=== PATIENT | female | born 1960 | race Caucasian/White ===

== ENCOUNTER → 2023-05-21 13:31 | Outpatient (REF) | payer OTHER, SELFPAY | LOC: HWWDC 13:31 | PROVIDERS: ATTENDING PHYSICIAN Nurse Practitioner Adult Health; FAMILY PHYSICIAN Internal Medicine | DX: Z12.31 Encounter for screening mammogram for malignant neoplasm of breast (principal) | CPT/HCPCS: 77063; 77067 ==

== ENCOUNTER → 2023-05-25 10:26 | Outpatient (REF) | payer OTHER, SELFPAY | LOC: WDC 10:26 | PROVIDERS: ATTENDING PHYSICIAN Nurse Practitioner Adult Health; FAMILY PHYSICIAN Internal Medicine | DX: R92.8 Other abnormal and inconclusive findings on diagnostic imaging of breast (principal) | CPT/HCPCS: 76642 ==

== ENCOUNTER → 2023-09-24 13:07 | Outpatient (REF) | payer OTHER, SELFPAY | LOC: WDC 13:07 | PROVIDERS: ATTENDING PHYSICIAN Nurse Practitioner Adult Health | DX: R92.2 Inconclusive mammogram (principal) | CPT/HCPCS: 76641 ==

== ENCOUNTER → 2023-12-28 09:46 | Outpatient (REF) | payer OTHER, SELFPAY | LOC: RAD 09:46 | PROVIDERS: ATTENDING PHYSICIAN Obstetrics & Gynecology Gynecology; FAMILY PHYSICIAN Internal Medicine | DX: M85.80 Other specified disorders of bone density and structure, unspecified site (principal) | CPT/HCPCS: 77080 ==

== ENCOUNTER → 2024-03-28 13:59 | Outpatient (REF) | payer OTHER, SELFPAY | LOC: WDC 13:59 | PROVIDERS: ATTENDING PHYSICIAN Nurse Practitioner Adult Health; FAMILY PHYSICIAN Internal Medicine | DX: R92.8 Other abnormal and inconclusive findings on diagnostic imaging of breast (principal) | CPT/HCPCS: 76642 ==

== ENCOUNTER → 2024-05-28 12:11 | Outpatient (REF) | payer OTHER, SELFPAY | LOC: WDC 12:11 | PROVIDERS: ATTENDING PHYSICIAN Obstetrics & Gynecology Gynecology; FAMILY PHYSICIAN Internal Medicine | DX: Z12.31 Encounter for screening mammogram for malignant neoplasm of breast (principal) | CPT/HCPCS: 77063; 77067 ==

== ENCOUNTER → 2024-06-24 11:11 | Outpatient (REF) | payer OTHER, SELFPAY | LOC: PAVMRI 11:11 | PROVIDERS: ATTENDING PHYSICIAN Student in an Organized Health Care Education/Training Program; FAMILY PHYSICIAN Internal Medicine | DX: M25.562 Pain in left knee (principal) | CPT/HCPCS: 73721 ==

== ENCOUNTER → 2024-08-16 08:20 | Outpatient (REF) | payer OTHER, SELFPAY ==
[2024-08-16 09:29] LABS: % Basophils 0.7 % (0-2); % Eosinophils 1.9 % (0-6); % Immature Granulocytes 0.5 % (0-0.5); % Monocytes 9.3 % (1.7-9.3); % Neutrophils 62.6 % (42.2-75.2); Absolute Basophils 0.1 10^3/uL (0-0.2); Absolute Eosinophils 0.2 10^3/uL (0-0.7); Absolute Immature Granulocytes 0.1 10^3/uL (0-0.05); Absolute Lymphocytes 2.6 10^3/uL (1.2-3.4); Absolute Neutrophils 6.5 10^3/uL (1.4-6.5); Hematocrit 38.5 % (37.0-47.0); Hemoglobin 12.6 g/dL (12.0-16.0); Mean Corp Hgb Conc. 32.7 g/dL (33.0-37.0); Mean Corpuscular Hgb 29.3 pg (27.0-31.0); Mean Corpuscular Volume 89.5 fL (81.0-99.0); Mean Platelet Volume 9.7 fL (7.4-10.4); Nucleated Red Blood Cells % 0 %; Platelet Count 269 10^3/uL (130-400); Red Cell Dist. Width 13.2 % (11.5-14.5); White Blood Cell Count 10.4 10^3/uL (4.8-10.8)
[2024-08-16 10:25] LABS: TSH 1.76 uIU/ml (0.47-4.68)
[2024-08-16 10:26] LABS: ALT (SGPT) 24 U/L (0-35); AST (SGOT) 23 U/L (14-36); Albumin 4.5 g/dl (3.5-5.0); Alkaline Phosphatase 82 U/L (38-126); Blood Urea Nitrogen 17 mg/dl (7-17); Calcium 9.4 mg/dl (8.4-10.2); Carbon Dioxide 27 mmol/L (22-30); Chloride 102 mmol/L (98-107); Glucose 99 mg/dl (70-99); HDL Cholesterol 102 mg/dl; LDL Cholesterol, Calculated 102 mg/dl; Potassium 4.8 mmol/L (3.5-5.1); Sodium 136 mmol/L (135-145); Total Bilirubin 0.6 mg/dl (0.2-1.3); Total Cholesterol 226 mg/dl (50-199); Total Protein 7.5 g/dl (6.3-8.2); Triglyceride 111 mg/dl (10-149); Very Low Density Lipoprotein 22 mg/dl (0-30); eGFR > 60.00
== END ==
LOC: REG 08:20
PROVIDERS: ATTENDING PHYSICIAN Specialist; FAMILY PHYSICIAN Internal Medicine
DX: Z00.00 Encounter for general adult medical examination without abnormal findings (principal); E78.5 Hyperlipidemia, unspecified; R53.83 Other fatigue; Z01.818 Encounter for other preprocedural examination
CPT/HCPCS: 36415; 80053; 80061; 84443; 85025; 93005

== ENCOUNTER 2024-08-22 06:24 | Day surgery (SDC) | payer OTHER, SELFPAY ==
[2024-08-22] VITALS (13 sets, daily range): BP systolic 142–169; BP diastolic 68–117; BMI 25.7
[2024-08-22] MEDS: CELEBREX 200 MG PO (09:39)
[2024-08-22] MEDS: TYLENOL 1000 MG PO (09:39)
[2024-08-22] MEDS: NORMOSOL-R/PLASMALYTE-A 1000 IV (09:40)
[2024-08-22] MEDS: DILAUDID 0.25 MG IV ×2 (11:20→12:13)
== END 2024-08-22 13:18 | disposition home or self-care (01) ==
LOC: SDS 06:24
PROVIDERS: ATTENDING PHYSICIAN Specialist
DX: S83.242A Other tear of medial meniscus, current injury, left knee, initial encounter (principal); S83.282A Other tear of lateral meniscus, current injury, left knee, initial encounter; X58.XXXA Exposure to other specified factors, initial encounter
CPT/HCPCS: 29880

== ENCOUNTER → 2024-09-24 12:09 | Outpatient (REF) | payer OTHER, SELFPAY | LOC: WDC 12:09 | PROVIDERS: ATTENDING PHYSICIAN Nurse Practitioner Adult Health | DX: R92.2 Inconclusive mammogram (principal); R92.8 Other abnormal and inconclusive findings on diagnostic imaging of breast | CPT/HCPCS: 76641 ==

== ENCOUNTER 2025-02-01 11:38 | Emergency (ER) | payer OTHER, SELFPAY ==
[2025-02-01 11:41] VITALS: BP 179/94
[2025-02-01] MEDS: MOTRIN 600 MG PO (13:14)
[2025-02-01 15:16] VITALS: BP 148/90
--- NOTE | 2025-02-01 16:57 | ED.GENMED ---
History of Present Illness
General
Chief Complaint: DVT/Possible Blood Clot
Source: patient
Exam Limitations: none
Time Seen by Provider: 02/01/25 12:34
Nursing documentation reviewed up to this point in time: agreed with
History of Present Illness
History of Present Illness:
64-year-old female presenting with right knee pain. She states that she is been dealing with pain behind her right knee radiating to her right calf over the past three weeks. She has been managing symptoms supportively with ice, elevation, NSAIDS
and Tylenol. Over the past few days she noticed worsening swelling around the knee and a feeling of �stiffness�. She has been able to bear some weight, although is having discomfort when doing so.
She presented to an urgent care facility this morning when they performed an X-ray of the right knee which was supposedly unremarkable. They recommended an outpatient US to r/o DVT. She didn�t feel that she could wait for US and presented to the ED/
She denies any fever, chills, or redness of right lower leg. She denies any numbness/tingling in right lower extremity. No chest pain, shortness of breath. No recent travel or recent surgeries. No known inciting injury or trauma.
She states that she had similar symptoms in her left knee a few years ago, which were significantly relieved with a steroid pack.
Review of Systems
Review of Systems
Allergies reviewed?: Yes
All Other Systems: ROS reviewed and negative except as documented in HPI and ROS
Phy Exam
Physical Exam
Physical Exam:
Vitals: Hypertensive, otherwise vital signs are stable. Afebrile
General: Patient is well appearing, no acute distress
Skin: Warm and dry, no rashes or lesions
Head: Normocephalic, atraumatic
Throat: Protecting airway
Neck: Normal ROM, no cervical spine tenderness
Cardiac: Regular rate
Pulm: No apparent respiratory distress
Abdomen: Nondistended
Extremities: Small joint effusion of right knee without any erythema or warmth. No joint line tenderness or laxity. ROM intact. Mild tenderness in right popliteal space without palpable cyst. No tenderness, pitting edema, erythema, or warmth of RLE.
Normal sensation and 2+ DP pulse.
Neuro: Grossly intact
Psychiatric: Normal affect.
Course
Orders/Labs/Results
Orders:
Orders
02/01/25 11:43
Periph Venous Lwr Ext Rt US [US Periph Venous LOWER Ext RT] Urgent
Comment:
Reason For Exam: swelling/pain
02/01/25 12:58
Ibuprofen [Motrin] 600 mg PO NOW STA
02/01/25 14:33
Knee Immobilizer Right-Treatme ONCE
Vital Signs
Initial and Last Documented VS:
Initial Vital Signs
Temp Pulse Resp BP Pulse Ox
98.9 F 98 16 179/94 100
02/01/25 11:41 02/01/25 11:41 02/01/25 11:41 02/01/25 11:41 02/01/25 11:41
Last Documented Vital Signs
Temp Pulse Resp BP Pulse Ox
98.9 F 92 16 148/90 100
02/01/25 11:41 02/01/25 15:16 02/01/25 11:41 02/01/25 15:16 02/01/25 16:57
MDM/Problems Addressed
Differential Diagnosis Includes:
Not limited to: ligamentous injury, Bakers cyst, osteoarthritis, DVT, etc
MDM/Problems Addressed:
64-year-old female with right knee pain/swelling, worse over the past few weeks. No fevers, known inciting trauma. Vitals stable. On exam, she does have a small effusion of her right knee. Tenderness noted mainly in the popliteal space. No palpable
cyst. There is no erythema or warmth of right knee and she has decent range of motion. No edema of right calf. Right lower extremity neurovascularly intact.
Ultimately � suspect possible ligamentous injury or Bakers cyst based on location and description of pain. No erythema, warmth, or significant pain w/ range of motion to suggest infectious process or septic arthritis.
An ultrasound was obtained w/o evidence of DVT although does note a Bakers cyst in the right popliteal space. Suspect this is likely contributing to patients symptoms along with possible associated ligamentous injury. Given difficulty weight
bearing, will put in knee immobilizer. Discussed supportive care and orthopedic follow-up outpatient.
Patient is repeatedly requesting medial dose pack. While I do not feel this will significantly improve patients symptoms � will trial as patient reports improvement in past.
She will follow up with orthopedics next week for further evaluation and management.
Chronic conditions affecting care:
N/A
Acute Exacerbation and/or Progression of Chronic Illness:
N/A
*Radiology
Radiology exam reviewed: radiology read reviewed
*Pulse Oximetry
SaO2: 100
Oxygen Mode of Delivery: Room air
Patient hypoxic: no
*EKG
Interpreted by ED Provider?: NA
*Green Meat Grader Interpretation
Rate: Green Meat Grader- N/A
*Critical Care Note
Total Time (30-74mins, 75-104mins- exclusive of procedures): Not Applicable
ED Attending Note
-
Portions of this chart may have been created with voice recognition software.� Occasional wrong word or��sound alike� substitutions may have occurred due to the inherent limitations of voice recognition software.
Discharge Plan
Departure
Patient Disposition: Home (Routine Discharge)
Date of Disposition: 02/01/25
Time of Disposition: 14:34
Patient with high blood pressure during this ER visit?: Yes
Discharge Problem:
Knee pain, right, Hubbard cyst
Instructions: Hubbard's Cyst (DC), BLOOD PRESSURE
Prescriptions:
New
methylprednisolone 4 mg tablets,dose pack
See Rx Instructions .ROUTE .COMPLEX Qty: 21 0RF
Rx Instructions:
for 6 days
No Action
acetaminophen [Tylenol Extra Strength] 500 mg Tablet
1,000 mg PO Q6H PRN (Reason: pain)
multivitamin Tablet
1 tab PO DAILY
tramadol 50 mg Tablet
50 mg PO Q8H PRN (Reason: pain)
Referrals:
Kathy Yao MD [Family Provider, Internal Medicine]
Mukesh Aleman MD [Active, Orthopedics] - Next open appointment
Activity Restrictions/Additional Instructions:
RETURN TO THE EMERGENCY DEPARTMENT WITH ANY SIGNIFICANT WORSENING IN SWELLING/PAIN OF RIGHT KNEE, ANY REDNESS OR WARMTH OF RIGHT KNEE, FEVERS, INABILITY TO AMBULATE, WORSENING IN CURRENT SYMPTOMS, OR ANY OTHER CONCERNS
- As discussed, the ultrasound showed no evidence of a blood clot in your right lower leg. There was a cyst noted in the popliteal space, possibly a Hubbard's cyst.
- Continue to treat symptoms supportively at home with ice, elevation, Tylenol and/or Motrin as needed for pain. Wear knee immobilizer to assist with ambulation.
- Follow-up with orthopedics for further evaluation/management. You may require further imaging.
Monitor your symptoms closely and return to the emergency department with any acute worsening/new symptoms or any other concerns
Interventions
Interventions:
*Risk Screen - Suicide Last Done: 02/01/25 11:41
*General Assessment Last Done: 02/01/25 11:41
*Neglect/Abuse Screening Last Done: 02/01/25 11:41
*ED- Fall Risk Assessment Last Done: 02/01/25 11:41
*ED COVID-19 Vaccine History Last Done: 02/01/25 11:41
*ED Influenza Vaccine History Last Done: 02/01/25 11:41
*Nursing Disposition Last Done: 02/01/25 15:16
ED- Cardiac Assessment Last Done: 02/01/25 13:30
ED- Pulmonary Assessment Last Done: 02/01/25 13:30
ED-Peripheral Vascular Assessment Last Done: 02/01/25 13:30
ED-Skin Assessment Last Done: 02/01/25 13:30
Discharge Date and Time
Discharge Date/Time: 02/01/25 15:20
Print Language: CHINESE
== END 2025-02-01 15:20 | disposition home or self-care (01) ==
LOC: EMR 11:38
PROVIDERS: EMERGENCY PHYSICIAN Emergency Medicine; FAMILY PHYSICIAN Internal Medicine
DX: M71.21 Synovial cyst of popliteal space [Baker], right knee (principal); R03.0 Elevated blood-pressure reading, without diagnosis of hypertension
CPT/HCPCS: 99284; 29505; 93971